=== PATIENT | female | born 1935 | race Caucasian/White ===

== ENCOUNTER → 2023-08-20 11:01 | Outpatient (REF) | payer MEDICARE, SELFPAY | LOC: HWRCS 11:01 | PROVIDERS: ATTENDING PHYSICIAN Internal Medicine Cardiovascular Disease; FAMILY PHYSICIAN Internal Medicine | DX: I50.30 Unspecified diastolic (congestive) heart failure (principal); R06.09 Other forms of dyspnea | CPT/HCPCS: 93306 ==

== ENCOUNTER → 2023-08-22 06:58 | Outpatient (REF) | payer MEDICARE, SELFPAY | LOC: DHCBC/DCA 06:58 | PROVIDERS: ATTENDING PHYSICIAN Internal Medicine Cardiovascular Disease; FAMILY PHYSICIAN Internal Medicine | DX: I50.30 Unspecified diastolic (congestive) heart failure (principal); R06.09 Other forms of dyspnea | CPT/HCPCS: 78452; 93017; A9500; J2785 ==

== ENCOUNTER → 2023-09-24 07:28 | Outpatient (REF) | payer MEDICARE, SELFPAY | LOC: RSP 07:28 | PROVIDERS: ATTENDING PHYSICIAN Internal Medicine Cardiovascular Disease; FAMILY PHYSICIAN Internal Medicine | DX: R06.09 Other forms of dyspnea (principal); I27.29 Other secondary pulmonary hypertension | CPT/HCPCS: 94727; 94729; 71275; 88738; 94010; 94060; Q9967 ==

== ENCOUNTER 2024-01-09 07:15 | Day surgery (SDC) | payer MEDICARE, SELFPAY ==
[2024-01-09 08:02] VITALS: BMI 21.2
== END 2024-01-09 10:14 | disposition home or self-care (01) ==
LOC: CATH 07:15
PROVIDERS: ATTENDING PHYSICIAN Internal Medicine Cardiovascular Disease; FAMILY PHYSICIAN Internal Medicine; OTHER PHYSICIAN Internal Medicine Cardiovascular Disease
DX: I08.1 Rheumatic disorders of both mitral and tricuspid valves (principal); I48.91 Unspecified atrial fibrillation; I10 Essential (primary) hypertension; Z86.73 Personal history of transient ischemic attack (TIA), and cerebral infarction without residual deficits; Z87.891 Personal history of nicotine dependence; Z79.01 Long term (current) use of anticoagulants; Z79.84 Long term (current) use of oral hypoglycemic drugs
CPT/HCPCS: 93312; 93320; 93325

== ENCOUNTER → 2024-02-05 11:59 | Outpatient (REF) | payer MEDICARE, SELFPAY ==
[2024-02-05 12:50] LABS: % Basophils 0.9 % (0-2); % Eosinophils 0.9 % (0-6); % Immature Granulocytes 0.4 % (0-0.5); % Lymphocytes 17.9 % (20.5-51.1); % Neutrophils 67.9 % (42.2-75.2); Absolute Basophils 0.1 10^3/uL (0-0.2); Absolute Eosinophils 0.1 10^3/uL (0-0.7); Absolute Monocytes 0.6 10^3/uL (0.1-0.6); Absolute Neutrophils 3.6 10^3/uL (1.4-6.5); Hematocrit 39.7 % (37.0-47.0); Hemoglobin 13.6 g/dL (12.0-16.0); Mean Corp Hgb Conc. 34.3 g/dL (33.0-37.0); Mean Corpuscular Hgb 33.4 pg (27.0-31.0); Mean Corpuscular Volume 97.5 fL (81.0-99.0); Mean Platelet Volume 10.7 fL (7.4-10.4); Nucleated Red Blood Cells % 0 %; Platelet Count 104 10^3/uL (130-400); Red Blood Cell Count 4.07 10^6/uL (4.20-5.40); Red Cell Dist. Width 13.7 % (11.5-14.5); White Blood Cell Count 5.3 10^3/uL (4.8-10.8)
[2024-02-05 14:24] LABS: NT-proBNP 1920 pg/ml
[2024-02-05 14:28] LABS: ALT (SGPT) 16 U/L (0-35); AST (SGOT) 32 U/L (14-36); Albumin 4.5 g/dl (3.5-5.0); Alkaline Phosphatase 122 U/L (38-126); Blood Urea Nitrogen 21 mg/dl (7-17); Calcium 9.7 mg/dl (8.4-10.2); Carbon Dioxide 32 mmol/L (22-30); Chloride 94 mmol/L (98-107); Glucose 99 mg/dl (70-99); Potassium 3.7 mmol/L (3.5-5.1); Sodium 136 mmol/L (135-145); Total Bilirubin 1.2 mg/dl (0.2-1.3); Total Protein 7.3 g/dl (6.3-8.2); eGFR > 60.00
[2024-02-08 09:42] LABS: ANA, IgG Reflex to HEp-2 None Detected (None Detected)
== END ==
LOC: REG 11:59
PROVIDERS: ATTENDING PHYSICIAN Internal Medicine Cardiovascular Disease
DX: I36.1 Nonrheumatic tricuspid (valve) insufficiency (principal); R60.0 Localized edema; R23.3 Spontaneous ecchymoses
CPT/HCPCS: 36415; 80053; 83880; 85025; 86038

== ENCOUNTER → 2024-03-04 15:53 | Outpatient (REF) | payer MEDICARE, SELFPAY ==
[2024-03-04 18:01] LABS: Blood Urea Nitrogen 30 mg/dl (7-17); Calcium 9.4 mg/dl (8.4-10.2); Carbon Dioxide 29 mmol/L (22-30); Chloride 97 mmol/L (98-107); Glucose 88 mg/dl (70-99); Magnesium 2.3 mg/dl (1.6-2.3); Sodium 137 mmol/L (135-145); eGFR > 60.00
[2024-03-04 18:08] LABS: NT-proBNP 2700 pg/ml
== END ==
LOC: REG 15:53
PROVIDERS: ATTENDING PHYSICIAN Internal Medicine Cardiovascular Disease; FAMILY PHYSICIAN Internal Medicine
DX: I48.20 Chronic atrial fibrillation, unspecified (principal)
CPT/HCPCS: 36415; 80048; 83735; 83880

== ENCOUNTER → 2024-04-08 08:23 | Outpatient (REF) | payer MEDICARE, SELFPAY ==
[2024-04-08 09:45] LABS: NT-proBNP 1610 pg/ml
[2024-04-08 10:05] LABS: Blood Urea Nitrogen 27 mg/dl (7-17); Calcium 9.6 mg/dl (8.4-10.2); Carbon Dioxide 28 mmol/L (22-30); Chloride 101 mmol/L (98-107); Glucose 97 mg/dl (70-99); Potassium 4.5 mmol/L (3.5-5.1); Sodium 140 mmol/L (135-145); eGFR > 60.00
== END ==
LOC: RAD 08:23
PROVIDERS: ATTENDING PHYSICIAN Internal Medicine Cardiovascular Disease; REFERRING PHYSICIAN Internal Medicine
DX: I36.1 Nonrheumatic tricuspid (valve) insufficiency (principal); R18.8 Other ascites
CPT/HCPCS: 36415; 76700; 80048; 83880; 93975

== ENCOUNTER → 2024-05-08 13:55 | Outpatient (REF) | payer MEDICARE, SELFPAY ==
[2024-05-08 15:06] LABS: Blood Urea Nitrogen 26 mg/dl (7-17); Calcium 9.8 mg/dl (8.4-10.2); Carbon Dioxide 30 mmol/L (22-30); Chloride 92 mmol/L (98-107); Glucose 107 mg/dl (70-99); Potassium 4.3 mmol/L (3.5-5.1); Sodium 133 mmol/L (135-145); eGFR > 60.00
== END ==
LOC: REG 13:55
PROVIDERS: ATTENDING PHYSICIAN Physician Assistant Medical; FAMILY PHYSICIAN Internal Medicine
DX: I50.30 Unspecified diastolic (congestive) heart failure (principal)
CPT/HCPCS: 36415; 80048

== ENCOUNTER 2024-05-11 07:29 | Day surgery (SDC) | payer MEDICARE, SELFPAY ==
[2024-05-11] VITALS (7 sets, daily range): BP systolic 104–145; BP diastolic 60–90; BMI 21.8
[2024-05-11 08:06] LABS: Hematocrit 45.4 % (37.0-47.0); Hemoglobin 15.4 g/dL (12.0-16.0); Mean Corp Hgb Conc. 33.9 g/dL (33.0-37.0); Mean Corpuscular Hgb 32.8 pg (27.0-31.0); Mean Corpuscular Volume 96.6 fL (81.0-99.0); Mean Platelet Volume 8.9 fL (7.4-10.4); Platelet Count 173 10^3/uL (130-400); Red Cell Dist. Width 12.9 % (11.5-14.5); White Blood Cell Count 5.7 10^3/uL (4.8-10.8)
--- NOTE | 2024-05-11 13:01 | ITS.CL.CATH ---
[employer] - Catheterization
Cardiac Catheterization
Procedure Report:
RIGHT HEART CATHETERIZATION
Date of Procedure: May 11, 2024
Referring: Winsome Miller PA-C, Miguel Ángel Varner
INDICATION: Assess invasive hemodynamics
Hemodynamics (mmHg):
RA (m) : 11
RV (s/d,m) : 37/6, 13
PA (s/d, m) : 39/19, 20
PCWP (m) : 16
PA saturation: 71.9% on room air
AO saturation: 99.0% on room air--noninvasive pulse oximetry was utilized given no invasive arterial access
RA saturation: 71.3% on room air
Cardiac Output : 2.87 L/min
Cardiac Index : 1.87 L/min/m-2
Systemic vascular resistance: 2564 dsc^(-5)
Pulmonary vascular resistance: 3.49 bill unit
RADIATION SUMMARY: Fluoro Time (min): 0.6, Dose (mGy): 1.57, DAP (Gy.cm2) : 0.23
SEDATION: 21 minutes of procedural sedation was utilized. An independent medical anthropology director was present to assist with and help manage the patient's level of consciousness and physiologic status.
CONCLUSION:
1. Significantly elevated filling pressures (right greater than left) with reduced cardiac output
Copy to: Winsome Miller PA-C, Miguel Ángel Varner, Elena Marquez MD, Marcello Rush (PCP)
Martina Lowry MD, [facility], [facility]
== END 2024-05-11 14:05 | disposition home or self-care (01) ==
LOC: CATH 07:29
PROVIDERS: ATTENDING PHYSICIAN Internal Medicine Interventional Cardiology; FAMILY PHYSICIAN Internal Medicine; OTHER PHYSICIAN Internal Medicine Cardiovascular Disease
DX: R06.09 Other forms of dyspnea (principal); I36.1 Nonrheumatic tricuspid (valve) insufficiency; I11.0 Hypertensive heart disease with heart failure; I50.32 Chronic diastolic (congestive) heart failure; Z79.01 Long term (current) use of anticoagulants; J44.9 Chronic obstructive pulmonary disease, unspecified; Z79.84 Long term (current) use of oral hypoglycemic drugs; Z79.899 Other long term (current) drug therapy
CPT/HCPCS: 99152; 85027; 93451

== ENCOUNTER → 2024-09-18 08:08 | Outpatient (REF) | payer MEDICARE, SELFPAY ==
[2024-09-18 12:19] LABS: Hematocrit 40.5 % (37.0-47.0); Hemoglobin 13.6 g/dL (12.0-16.0); Mean Corp Hgb Conc. 33.6 g/dL (33.0-37.0); Mean Corpuscular Volume 95.5 fL (81.0-99.0); Nucleated Red Blood Cells % 0 %; Platelet Count 150 10^3/uL (130-400); Red Cell Dist. Width 12.9 % (11.5-14.5)
[2024-09-18 12:53] LABS: ALT (SGPT) 19 U/L (0-35); AST (SGOT) 33 U/L (14-36); Albumin 4.5 g/dl (3.5-5.0); Alkaline Phosphatase 107 U/L (38-126); Blood Urea Nitrogen 28 mg/dl (7-17); Calcium 9.4 mg/dl (8.4-10.2); Carbon Dioxide 27 mmol/L (22-30); Chloride 104 mmol/L (98-107); Glucose 97 mg/dl (70-99); Potassium 4.1 mmol/L (3.5-5.1); Sodium 138 mmol/L (135-145); Total Protein 7.4 g/dl (6.3-8.2); Very Low Density Lipoprotein 11 mg/dl (0-30); eGFR 54.87
[2024-09-18 13:18] LABS: HDL Cholesterol 117 mg/dl; LDL Cholesterol, Calculated 62 mg/dl
== END ==
LOC: HWLAB 08:08
PROVIDERS: ATTENDING PHYSICIAN Internal Medicine Cardiovascular Disease; FAMILY PHYSICIAN Internal Medicine
DX: I10 Essential (primary) hypertension (principal); I50.30 Unspecified diastolic (congestive) heart failure; R00.2 Palpitations
CPT/HCPCS: 36415; 80053; 80061; 83880; 84443; 85025